=== PATIENT | female | born 1960 | race Caucasian/White ===

== ENCOUNTER 2025-03-02 12:38 | Inpatient (IN) | payer MEDICAID, MEDICARE ==
[~2025-03-02] VITALS: Ht 160 cm; Wt 80.8 kg
[~2025-03-02 12:38] MED LIST: LACT1CAP65 PO; MULT-1179 PO; PYRI-3 PO
[2025-03-02 13:07] LABS: BASOPHILS % (AUTO) 0.5 % (0-1); EOSINOPHILS # (AUTO) 0.1 X10'3 (0-0.9); EOSINOPHILS % (AUTO) 1.6 % (0-6); HEMATOCRIT 39.5 % (35.0-45.0); HEMOGLOBIN 13.1 g/dl (12.0-16.0); LYMPHOCYTES # (AUTO) 1.6 X10'3 (1.1-4.8); LYMPHOCYTES % (AUTO) 27.4 % (21-51); MEAN CORPUSCULAR HEMOGLOBIN 28.4 PG (27.0-31.0); MEAN CORPUSCULAR HGB CONC 33.3 g/dL (33.0-36.5); MEAN CORPUSCULAR VOLUME 85.2 FL (78-98); MEAN PLATELET VOLUME 7.1 FL (7.4-10.4); MONOCYTES # (AUTO) 0.5 X10'3 (0-0.9); MONOCYTES % (AUTO) 7.9 % (2-12); NEUTROPHILS # (AUTO) 3.7 X10'3 (1.8-7.7); NEUTROPHILS % (AUTO) 62.6 % (42-75); PLATELET COUNT 210 X10'3 (140-440); RED BLOOD COUNT 4.63 X10'6 (4.20-5.60); RED CELL DISTRIBUTION WIDTH 13.4 % (11.5-14.5); WHITE BLOOD COUNT 5.9 X10'3 (4.5-11.0)
[2025-03-02 13:17] LABS: ALBUMIN 4.1 G/DL (3.4-5.0); ANION GAP 9 (8-16); BLOOD UREA NITROGEN 30 MG/DL (7-18); BUN/CREATININE RATIO 29.1 (10.0-20.0); CALCIUM 9.4 MG/DL (8.5-10.1); CHLORIDE 100 MMOL/L (99-107); CREATININE 1.03 MG/DL (0.40-0.90); GLUCOSE 114 MG/DL (70-104); POTASSIUM 3.8 MMOL/L (3.5-5.1); SODIUM 136 MMOL/L (135-145); TOTAL CARBON DIOXIDE 27.3 MMOL/L (24-32); eCRCL 44 ML/MIN; eGFR 53 ML/MIN
--- NOTE | 2025-03-02 13:20 | ELECTROCARDIOGRAPH REPORT ---
[facility] Test Date: 2025-03-02 Test Time: 13:16:50 Pat Name: MESSI HUERTA Department: [facility] Patient ID: [facility]-[id number] Room: ORTHO [facility] Gender: F Convict Guard: : 1960 Requested By: DIDI LYNN Order Number: [id number] Reading MD: Dr. Lemuel Huerta Measurements Intervals [place] Rate: 71 P: 30 OH: 101 QRS: 45 QRSD: 96 T: 44 QT: 393 QTc: 428 Interpretive Statements Sinus rhythm Short OH interval Probable left atrial enlargement Electronically Signed On 03-05-2025 13:43:[address] Lemuel Huerta Please click the below link to view image of tracing.
[2025-03-02 13:22] LABS: APTT 26 SECONDS (22-32); PROTHROMBIN TIME 10.2 SECONDS (9.0-12.0)
[2025-03-02] MEDS ORDERED: iohexol 350MG/ML 100ml bottle IV ONE (13:28)
--- NOTE | 2025-03-02 13:31 | RADIOLOGY REPORT ---
CLINICAL INFORMATION: 65 years old, Female; Stroke Alert. TECHNIQUE: Axial imaging was obtained through the brain without contrast. Coronal and sagittal reform atted images were obtained, reviewed, and stored. Images were reviewed in brain and bone windows. Al l CT scans at this medical facility are performed using dose modulation techniques as appropriate to a performed exam including the following: Automated exposure control was utilized; adjustment of the MA and/or KV according to patient size; and use of iterative reconstruction technique. CTDIvol = 51.1 8 mGy DLP = 861.28 mGy-cm COMPARISON: None FINDINGS: There is no acute intracranial hemorrhage. No mass effect or midline shift. Scattered areas of hypoattenuation are seen in the periventricular and subcortical white matter, which are nonspecif ic but most likely sequelae of small vessel ischemic disease.The ventricles and sulci are within norm al limits in size for age. Basal cisterns are patent. The calvarium is unremarkable. Paranasal sinus es and mastoid air cells are clear. IMPRESSION: 1. No CT evidence of acute intracranial abnormality. 2. Nonacute findings as described above. Critical findings Critical Result: Stroke Alert Findings discussed with Dr. Shi, at 03/02/2025 03:27 PM CDT, and acknowledged receipt and understa nding of the findings. ..
--- NOTE | 2025-03-02 13:40 | RADIOLOGY REPORT ---
CHEST RADIOGRAPH Indication: Stroke Alert Technique: Single frontal view of the chest was obtained Comparison: FINDINGS: The cardiac silhouette is unremarkable. The lungs demonstrate no pulmonary airspace consolidation. Th e pulmonary vasculature is unremarkable. There is no pleural effusion.. There is no pneumothorax. IMPRESSION: 1. No pulmonary airspace consolidation.
--- NOTE | 2025-03-02 14:17 | RADIOLOGY REPORT ---
EXAM: CT CTA NECK/HEAD DATE OF SERVICE: 03/02/2025 01:36 PM ORDERING PHYSICIAN: DIDI LYNN REASON FOR EXAM: cva TECHNIQUE: CTA of the brain and neck was performed after the administration of contrast . Axial imag es of the head and neck are obtained. Coronal and sagittal images were then reformatted for review. M IP reformats were obtained and reviewed. COMPARISON: CT head from today FINDINGS: FINDINGS: The right common carotid artery demonstrates no high-grade stenosis. Right internal carotid artery demonstrates no high-grade stenosis. Right middle cerebral artery demonstrates no high-grade stenosis. The right anterior cerebral artery demonstrates no high-grade stenosis. There is a single A2 segment proximally. The left common carotid artery demonstrates no high-grade stenosis. Left internal carotid artery demonstrates no high-grade stenosis. The left middle cerebral artery demonstrates no high-grade stenosis. The left anterior cerebral artery demonstrates no high-grade stenosis. Single A2 segment proximally. The right vertebral artery demonstrates no high-grade stenosis. The left vertebral artery demonstrates no high-grade stenosis. Basilar artery demonstrates no high-grade stenosis. The bilateral posterior cerebral arteries demonstrate no high-grade stenosis. IMPRESSION: 1. No large vessel high-grade stenosis.
--- NOTE | 2025-03-02 15:51 | Physician Documentation ---
History of Present Illness ~ Chief Complaint: Stroke Alert Stated Complaint: DIZZINESS/CONFUSION Time Seen by MD: 13:17 Primary Medical Doctor: [facility] Mode of Arrival: POV, Ambulatory HPI 65-year-old female presenting for dizziness and confusion. She reports 3 days of word-finding difficulties worsened over the last 24 hours. She had similar episode 3 months ago which he did not seek treatment for. She had a separate episode of confusion last year when she was seen at [facility] and diagnosed with CVA she was placed on aspirin and Plavix. She has taken herself off the Plavix due to dizziness Medication Reconciliation Allergies: Coded Allergies: penicillin G (Verified Allergy, Unknown, A CHILD, UNKNOWN REACTION, 05/16/17) walnut (Verified Allergy, Unknown, SWELLS OF LIPS AND TONGUE, 05/16/17) wool (Verified Allergy, Unknown, 05/16/17) Uncoded Allergies: WALNUTS (Allergy, Unknown, 05/06/17) Scheduled Fluoxetine HCl (Prozac), 1 CAP PO DAILY, (Reported) Trazodone HCl (Trazodone HCl), 1 TAB PO HS, (Reported) Discontinued Medications Lactobacillus Acidophilus (Probiotic), 1 EACH PO DAILY, (Reported) Discontinued Reason: patient no longer taking Multivitamins,Therapeutic* (Theragran-M*), 1 EACH PO DAILY, (Reported) Discontinued Reason: patient no longer taking Pyridoxine Hcl (Vitamin B-6), 1 TAB PO DAILY, (Reported) Discontinued Reason: patient no longer taking Past Medical History Past Medical History: No Pertinent History Past Surgical History: orthopedic surgeries Alcohol Use: None Lives In: Home Review of Systems All Other Systems at this time: Reviewed and Negative Physical Exam Vital Signs: RN Vital Signs have been reviewed: Yes, Temperature: 98.9, Heart Rate: 75, Respiratory Rate: 18, BP: 123/62, Pulse Oximetry: 99, Weight: 80.850 Oxygen Flow Rate: 0 Progress Progress Note 5:00 p.m. consulted with Neurology they are recommending admission for MRI starting aspirin Plavix and stroke evaluation 5:40 p.m. Consulted hospitalist Service who agree with management plan and graciously accept for admission Results/Orders Reviewed/noted all lab results: Yes Results/Orders Orders - DIDI LYNN MD Monitor (03/02/25 12:55) 2 Large Bore Ivs (03/02/25 12:55) Chest,Single View (03/02/25 12:55) Accucheck (03/02/25 12:55) Ct Stroke Alert (03/02/25 12:55) Cta Neck/Head (03/02/25 ) [place] Prov.Neuro Consult (03/02/25 14:30) Page Hospitalist (03/02/25 16:30) Fill Out Med Reconciliation (03/02/25 16:30) Completed Orders - DIDI LYNN MD Cbc/Diff (03/02/25 12:55) Electrocardiogram (03/02/25 12:55) Chest,Single View (03/02/25 12:55) Ct Stroke Alert (03/02/25 12:55) BMP (03/02/25 12:55) PTT (03/02/25 12:55) Pt Inr (03/02/25 12:55) Cta Neck/Head (03/02/25 ) Iohexol 350mg/Ml 100ml (Omnipaque 350mg/ (03/02/25 13:28) Vital Signs 03/02/25 03/02/25 03/02/25 03/02/25 12:45 14:45 15:19 16:21 Temp 98.9 Pulse 76 74 75 68 Resp 18 18 18 18 B/P (MAP) 134/73 123/62 123/62 (82) 94/38 (56) Pulse Ox 96 96 99 94 O2 Flow Rate 0 03/02/25 17:25 Pulse 64 Resp 18 B/P (MAP) 126/64 (84) Pulse Ox 97 Laboratory Tests Test 03/02/25 12:58 03/02/25 12:59 Glucometer 126 H White Blood Count 5.9 Red Blood Count 4.63 Hemoglobin 13.1 Hematocrit 39.5 Mean Corpuscular Volume 85.2 Mean Corpuscular Hemoglobin 28.4 Mean Corpuscular Hemoglobin Concent 33.3 Red Cell Distribution Width 13.4 Platelet Count 210 Mean Platelet Volume 7.1 L Neutrophils (%) (Auto) 62.6 Lymphocytes (%) (Auto) 27.4 Monocytes (%) (Auto) 7.9 Eosinophils (%) (Auto) 1.6 Basophils (%) (Auto) 0.5 Neutrophils # (Auto) 3.7 Lymphocytes # (Auto) 1.6 Monocytes # (Auto) 0.5 Eosinophils # (Auto) 0.1 Basophils # (Auto) 0.0 CBC Comment Prothrombin Time 10.2 INR International Normalized Ratio 1.0 Activated Partial Thromboplast Time 26 Coagulation Comments Sodium Level 136 Potassium Level 3.8 Chloride Level 100 Carbon Dioxide Level 27.3 Anion Gap 9 Blood Urea Nitrogen 30 H Creatinine 1.03 H Estimated GFR/1.73 m2 53 BUN/Creatinine Ratio 29.1 H Glucose Level 114 H Calcium Level 9.4 Albumin 4.1 Chemistry Comments EKG/XRAY/CT/US/VASC/MRI EKG : Additional Comment EKG independently interpreted by myself time 1:16 p.m. indication symptomatic patient normal sinus rhythm rate 71 normal axis normal intervals no ST or T-wave abnormalities CT : Impression CT head independently interpreted by myself shows no intracranial hemorrhage Medical Decision Making Additional info obtained from: old records Findings Discharge summary Differential Dx:Considerations: Include: CVA, Electrolyte imbalance, Encephalopathy Departure Disposition: ADMITTED INPATIENT Admitted to Inpatient Unit: to hospitalist Impression: Primary Impression: CVA (cerebral vascular accident) Qualified Codes: I63.9 - Cerebral infarction, unspecified Additional Impression Text Considered tPA for cerebrovascular accident however patient improving symptoms and medically contraindicated due to out of tPA window Referrals: NO PRIMARY CARE PROVIDER (PCP) Critical Care Note Total Time (mins): 30 Critical Care Note The very real possibility of a deterioration of this patient's condition required the highest level of my preparedness for sudden, emergent intervention. I provided critical care services, which included medication orders, frequent reevaluations of the patient's condition and response to treatment, ordering and reviewing test results, and discussing the case with various consultants. Excludes time spent performing separately billable procedures. The critical care time associated with the care of the patient was 30 minutes for the treatment of cerebrovascular accident requiring consideration of tPA Signature Scribe Signature: na Attestation: DIDI Garcia MD March 02, 2025 15:51
[2025-03-02] MEDS ORDERED: FLUO40CA10 PO (16:43)
[2025-03-02] MEDS ORDERED: TRAZ-251 PO (16:43)
--- NOTE | 2025-03-02 16:52 | [facility] CONSULT REPORT ---
[facility] Procedure Note [facility] Procedure Note Consult [facility] Note # Demographics Consult Type: Acute Stroke Level 2 (4.5-24 hrs) Patient Location: Emergency Room First Name: MESSI Last Name: BRADLEY Date of : 1960 Age: 65 Gender: Female Facility: [facility] Time of Initial Page (): 03/02/2025 16:24 Time of Return Call (): 03/02/2025 16:24 # HPI Chief Complaint: - speech changes - confusion History: 65 yo F p/w confusion, trouble texting and word finding difficulties for 3 days. Symptoms resolved now. Hx of stroke in 2023, no residual symptoms. Last Known Normal: 3 days ago # Scores Time of exam and NIHSS (): 03/02/2025 16:28 Level of Consciousness 1a: [0] = Alert; keenly responsive LOC Questions 1b: [0] = Answers both questions correctly LOC Commands 1c: [0] = Performs both tasks correctly Best Gaze 2: [0] = Normal Visual 3: [0] = No visual loss Facial Palsy 4: [0] = Normal symmetrical movements Motor Arm Left 5a: [0] = No drift Motor Arm Right 5b: [0] = No drift Motor Leg Left 6a: [0] = No drift Motor Leg Right 6b: [0] = No drift Limb Ataxia 7: [0] = Absent Sensory 8: [0] = Normal Best Language 9: [0] = No aphasia Dysarthria 10: [0] = Normal Extinction and Inattention 11: [0] = No abnormality NIHSS Total: 0 ABCD2 Score for TIA: [1] = Age >/= 60 years: Yes [0] = BP >/= 140/90: No [1] = Clinical features of the TIA: speech disturbances without weakness [2] = Duration of symptoms: >/= 60 minutes [0] = History of diabetes: No ABCD2 Total: 4 # ROS Additional: - complete review of systems otherwise negative # PMH-FH-SH Past Medical History: - stroke - hyperlipidemia Medications: - aspirin # Data Head CT: - no bleed CTA Head: no large vessel occlusion CTA Neck: patent vessels # Assessment Impression: - Transient Ischemic Attack # Plan Thrombolytic/Intervention: NOT IV Thrombolysis or IA Intervention candidate Thrombolytic Exclusion: > 4.5 hours Intraarterial Exclusion: - no large vessel occlusion (LVO) Labs: - hemoglobin A1c - lipid panel - troponin Imaging: (urgency: routine): - MRI Brain without contrast Diagnostic Test: - echo without bubble study Therapy/Evaluation: - NPO until swallow evaluation - PT/OT evaluation - speech/swallow consultation Medication: - Plavix 300 mg PO x1 now, then 75 mg daily x 21 days + asa 81mg x 21 days, followed by monotherapy thereafter - start statin with goal of LDL < 70 Other: - If patient has any neurological deterioration please call me back immediately - telemetry monitoring - LDL < 70 - neurology referral as outpatient - I have discussed my recommendations with the referring provider # Logistics Attestation of consult completion: The patient is located at: [facility]. Facility staff participated in the visit. I performed this telemedicine visit from my offsite office utilizing interactive 2 way audio and visual telecommunication technology. Total time spent in telemedicine encounter: I spent 23 minutes reviewing clinical data and/or imaging, obtaining history, examining the patient, communicating with the onsite care team, and in preparation of this report. # Demographics First Name: MESSI Last Name: BRADLEY Facility: [facility] Electronically signed at 03/02/2025 16:51 ([place] Time) by Itz Taylor MD Neuro Consult Order placed for: Yes ITZ TAYLOR MD March 02, 2025 16:52
[2025-03-02] MEDS: clopidogrel 300mg tablet PO ONE (18:10)
[2025-03-02] MEDS: aspirin 81mg tab.chew PO ONE ×2 (18:10→19:29)
[2025-03-02] MEDS ORDERED: acetaminophen 325mg tablet PO PRN ×2 (19:00)
[2025-03-02] MEDS ORDERED: magnesium sulf-water 2g/50mL 50 ML IV PRN (19:00)
[2025-03-02] MEDS ORDERED: potassium Cl 20 mEq SR tablet PO PRN ×2 (19:00)
[2025-03-02] MEDS ORDERED: ondansetron/PF 4mg/2ml inj IV PRN (19:00)
[2025-03-02] MEDS ORDERED: HYDROcodone/acetaminophen 5mg/325mg tablet PO PRN (19:00)
[2025-03-02] MEDS ORDERED: bisacodyl 10mg suppository rectal RC PRN (19:00)
[2025-03-02] MEDS ORDERED: mag hydrox/Alum hydrox/simeth 30ml oral suspension PO PRN (19:00)
[2025-03-02] MEDS ORDERED: HYDROcodone/acetaminophen 10/325mg tab PO PRN (19:00)
[2025-03-02] MEDS ORDERED: magnesium sulf-water 4G/100mL 100 ML IV PRN (19:00)
[2025-03-02] MEDS ORDERED: potassium Cl 40MEQ/1/2NS 520ml 520 ML IV PRN (19:00)
[2025-03-02] MEDS: PERFLUTREN PROTEIN-A MICROSPHR (Optison) 0.22 MG/ML 3ML VIAL IV ONE (19:22)
[2025-03-02] MEDS: enoxaparin 40mg/0.4ml syringe SQ SCH (19:30)
[2025-03-02] MEDS: normal saline 1000ml 1,000 ML IV SCH (19:30)
--- NOTE | 2025-03-02 19:32 | HISTORY AND PHYSICAL ---
History & Physical Providers to CC ~ History of Present Illness Reason for Admit\Complaint: CVA\expressive aphasia History of Present Illness This is a 65-year-old female who had a CVA in July presents to the ED with a three day history of expressive aphasia and difficulty with completing day-to-day tasks. Patient states she is unable to pay bills for the past couple of days. The patient has started to getting really angry she said it was making her upset and to the point today that she came to the ED. patient's head CT scan was negative for any acute findings and the CTA of the head and neck was negative for any significant for any stenosis. The patient was evaluated by Dr. Hardin tele neurologist who recommended 300 mg of Plavix now as well as atorvastatin and then 75 mg of Plavix daily along with 81 mg aspirin. The patient currently is taking aspirin daily and refuses to take Plavix or atorvastatin she informs me that she was discharged with these medications and shortly after starting these medications that has she felt weird and they made her upset she discuss this with the neurologist and she had longer takes either medication. The patient does take aspirin at home and red rice yeast supplement that is commonly taken as a substitute for statin. I spoke with Dr. Hardin about this and it was agreed upon that in a appropriate alternative would be to take 325 mg of aspirin daily and to continue red rice yeast- if the patient is LDL is 70 or above then to add Zetia. An MRI of the head is ordered as well as echocardiogram with a bubble study and fasting lipid panel A1c and troponin. Speech therapy and physical therapy is ordered Allergies: Coded Allergies: penicillin G (Verified Allergy, Unknown, A CHILD, UNKNOWN REACTION, 05/16/17) walnut (Verified Allergy, Unknown, SWELLS OF LIPS AND TONGUE, 05/16/17) wool (Verified Allergy, Unknown, 05/16/17) Atorvastatin (Verified Adverse Reaction, Severe, 03/02/25) clopidogrel (Verified Adverse Reaction, Unknown, 03/02/25) Uncoded Allergies: WALNUTS (Allergy, Unknown, 05/06/17) Home Medications Home Medications Active Reported Trazodone HCl 50 Mg Tablet 1 Tab PO HS 30 Days Prozac (Fluoxetine HCl) 40 Mg Capsule 1 Cap PO DAILY 30 Days Past Medical History Past Medical History CVA, depression and anxiety, degenerative disc disease of the cervical spine Past Surgical History Surgical History Comment Right rotator cuff repair, bilateral carpal tunnel surgery Family History Family History: FH: Alzheimers disease FATHER MOTHER FH: hyperlipidemia Maternal grandmother Past Social History Social History Comment Patient denes history of smoking/ drinking alcohol nor any illicit drug use DNR Code Status ROS ROS Except for positives in the HPI the rest of the 14 point review systems is negative Exam Vitals: Vital Signs Date Time Temp Pulse Resp B/P (MAP) Pulse Ox O2 Delivery O2 Flow Rate FiO2 03/02/25 18:23 78 12 137/67 (90) 99 03/02/25 12:45 98.9 0 General: Gen. No acute distress alert and oriented word-finding is present Lungs clear to ascultation bilaterally, no wheezes rales or rhonchi appreciated Heart normal sinus rhythm no murmurs rubs or clicks noted Abdomen soft nontender bowel sounds are normoactive Lower extremities no clubbing cyanosis, nor edema appreciated bilaterally Diagnostic Data Last Recorded Lab Results: 03/02/25 1259 03/02/25 1259 Diagnostic Data: Laboratory Tests Test 03/02/25 12:59 Prothrombin Time 10.2 SECONDS (9.0-12.0) INR International Normalized Ratio 1.0 INR Activated Partial Thromboplast Time 26 SECONDS (22-32) Coagulation Comments Advance Care Planning Advanced Care plannin - 30 Minutes Problems: (1) CVA (cerebral vascular accident) Status: Acute Additional Plan # expressive aphasia-likely secondary to CVA workup is in progress The patient was evaluated by Dr. Hardin tele neurologist who recommended 300 mg of Plavix now as well as atorvastatin and then 75 mg of Plavix daily along with 81 mg aspirin. The patient currently is taking aspirin daily and refuses to take Plavix or atorvastatin she informs me that she was discharged with these medications and shortly after starting these medications that has she felt weird and they made her upset she discuss this with the neurologist and she had longer takes either medication. The patient does take aspirin at home and red rice yeast supplement that is commonly taken as a substitute for statin. I spoke with Dr. Hardin about this and it was agreed upon that in a appropriate alternative would be to take 325 mg of aspirin daily and to continue red rice yeast- if the patient is LDL is 70 or above then to add Zetia. MRI of the head is ordered Echocardiogram Fasting lipid panel Troponin # depression/anxiety Continue fluoxetine and trazodone # renal insufficiency evaluate for KACEY Daily metabolic panels order # DVT prophylaxis SCDs and SQ Lovenox I spent a total of 17 minutes on reviewing various resuscitative measures/ ACP with the patient at the time of admission. The patient has decided on a full code status Date of Service: March 02, 2025 Billing Provider: BING DE LA PAZ DO Common Visit Codes: [id number] INP/OBS CARE (HIGH) Secondary Visit Codes: [id number] CARE PLAN 30 MINUTES Problem Qualifiers (1) CVA (cerebral vascular accident): CVA mechanism: unspecified Qualified Codes: I63.9 - Cerebral infarction, unspecified BING DE LA PAZ DO March 02, 2025 19:31
[2025-03-02] MEDS: docusate sod 100mg capsule PO SCH (19:38)
[2025-03-02] MEDS: K and/or MAG REPLACEMENT MC SCH (20:00)
[2025-03-02 21:30] VITALS: BP 132/64; PULSE 69; RESP 15; TEMP 97.9; O2SAT 98
[2025-03-02 22:00] VITALS: RESP 15; O2SAT 98
[2025-03-02] MEDS: traZODone 50mg tablet PO SCH (22:26)
[2025-03-03 02:00] VITALS: BP 123/58; PULSE 73; RESP 14; TEMP 98.3; O2SAT 98
[2025-03-03 06:00] VITALS: BP 108/53; PULSE 72; RESP 13; TEMP 97.9; O2SAT 97
[2025-03-03 07:21] LABS: BASOPHILS % (AUTO) 0.4 % (0-1); EOSINOPHILS # (AUTO) 0.1 X10'3 (0-0.9); EOSINOPHILS % (AUTO) 2.4 % (0-6); HEMOGLOBIN 12.6 g/dl (12.0-16.0); LYMPHOCYTES # (AUTO) 1.9 X10'3 (1.1-4.8); LYMPHOCYTES % (AUTO) 36.4 % (21-51); MEAN CORPUSCULAR HEMOGLOBIN 28.2 PG (27.0-31.0); MEAN CORPUSCULAR HGB CONC 33.1 g/dL (33.0-36.5); MEAN CORPUSCULAR VOLUME 85.1 FL (78-98); MEAN PLATELET VOLUME 7.1 FL (7.4-10.4); MONOCYTES # (AUTO) 0.5 X10'3 (0-0.9); MONOCYTES % (AUTO) 8.5 % (2-12); NEUTROPHILS # (AUTO) 2.8 X10'3 (1.8-7.7); NEUTROPHILS % (AUTO) 52.3 % (42-75); PLATELET COUNT 173 X10'3 (140-440); RED BLOOD COUNT 4.47 X10'6 (4.20-5.60); RED CELL DISTRIBUTION WIDTH 13.4 % (11.5-14.5); WHITE BLOOD COUNT 5.3 X10'3 (4.5-11.0)
[2025-03-03 08:01] LABS: ALANINE AMINOTRANSFERASE 23 U/L (12-78); ALBUMIN 3.5 G/DL (3.4-5.0); ALKALINE PHOSPHATASE 62 IU/L (46-116); ANION GAP 11 (8-16); ASPARTATE AMINO TRANSFERASE 20 U/L (10-37); BILIRUBIN,TOTAL 0.3 MG/DL (0.1-1.0); BLOOD UREA NITROGEN 20 MG/DL (7-18); CALCIUM 8.7 MG/DL (8.5-10.1); CHLORIDE 107 MMOL/L (99-107); CHOLESTEROL 215 MG/DL (0-200); CREATININE 0.91 MG/DL (0.40-0.90); GLUCOSE 103 MG/DL (70-104); HDL CHOLESTEROL 43 MG/DL (35-60); LDL CHOLESTEROL 131 MG/DL (50-100); POTASSIUM 3.7 MMOL/L (3.5-5.1); SODIUM 142 MMOL/L (135-145); TOTAL CARBON DIOXIDE 23.8 MMOL/L (24-32); TRIGLYCERIDES 290 MG/DL (20-135); eCRCL 50 ML/MIN; eGFR 62 ML/MIN
[2025-03-03 08:25] LABS: HEMOGLOBIN A1C 6.2 % (4.5-6.2)
[2025-03-03] MEDS: FLUoxetine 20mg capsule PO SCH (09:51)
[2025-03-03] MEDS: aspirin 325mg tablet PO SCH (09:51)
[2025-03-03] MEDS: ezetimibe 10mg tablet PO ONE (09:52)
[2025-03-03 10:00] VITALS: BP 130/61; PULSE 69; RESP 15; TEMP 97.3; O2SAT 98
--- NOTE | 2025-03-03 10:12 | RADIOLOGY REPORT ---
[facility]: MR MRI HEAD INDICATION: CVA vs TIA COMPARISON: CT scan of the head performed on 03/02/2025 TECHNIQUE: Multiplanar, multisequence magnetic resonance imaging of the brain was performed without the use of i ntravenous contrast. FINDINGS: No evidence of acute infarct. No intracranial hemorrhage. No mass effect. Old infarcts in the medial right thalamus. The ventricles and sulci are normal in size for age. Clear basal cisterns. Flow voids in the major intracranial vessels are maintained. No abnormality of the orbits. Paranasal sinuses and mastoid air cells are clear. No abnormality of the visualized osseous structures and extracranial soft tissues. IMPRESSION: 1. No acute infarct, intracranial hemorrhage, mass effect, or hydrocephalus.
[2025-03-03 18:00] VITALS: BP 117/62; PULSE 77; RESP 16; TEMP 97.7; O2SAT 97
[2025-03-03 22:00] VITALS: BP 121/53; PULSE 67; RESP 16; TEMP 97.5; O2SAT 97
--- NOTE | 2025-03-03 22:07 | PROGRESS NOTE ---
Daily Progress Note Providers to CC ~ Antibiotic Timeout Antibiotic Ordered?: No Subjective The patient has expressive aphasia is improving- I informed the patient of my discussion with the neurologist and the neurologist recommendations in the patient has started Zetia since her LDL was 131 Objective Vital Signs Date Time Temp Pulse Resp B/P (MAP) Pulse Ox O2 Delivery O2 Flow Rate FiO2 03/03/25 18:30 74 03/03/25 18:00 97.7 16 117/62 (80) 97 Room Air 03/02/25 21:15 0 Result Diagram: 03/03/25 0647 03/03/25 0647 Gen. No acute distress alert and oriented 4 Lungs clear to ascultation bilaterally, no wheezes rales or rhonchi appreciated Heart normal sinus rhythm no murmurs rubs or clicks noted Abdomen soft nontender bowel sounds are normoactive Lower extremities no clubbing cyanosis, nor edema appreciated bilaterally Coagulation Studies Laboratory Tests Test 03/02/25 12:59 Prothrombin Time 10.2 SECONDS (9.0-12.0) INR International Normalized Ratio 1.0 INR Activated Partial Thromboplast Time 26 SECONDS (22-32) Coagulation Comments Problem\Assessment\Plan Problems/Diagnosis: (1) CVA (cerebral vascular accident) # expressive aphasia-likely secondary to CVA workup is in progress The patient was evaluated by Dr. Hardin tele neurologist who recommended 300 mg of Plavix now as well as atorvastatin and then 75 mg of Plavix daily along with 81 mg aspirin. The patient currently is taking aspirin daily and refuses to take Plavix or atorvastatin she informs me that she was discharged with these medications and shortly after starting these medications that has she felt weird and they made her upset she discuss this with the neurologist and she had longer takes either medication. The patient does take aspirin at home and red rice yeast supplement that is commonly taken as a substitute for statin. I spoke with Dr. Hardin about this and it was agreed upon that in a appropriate alternative would be to take 325 mg of aspirin daily and to continue red rice yeast- if the patient is LDL is 70 or above then to add Zetia. MRI of the head is ordered Echocardiogram Fasting lipid panel Troponin 03/03 the patient is echocardiogram demonstrated an LVEF of 55-60% a negative bubble study The patient is MRI of her head was negative for acute CVA The patient's LDL is 131 thus Zetia was started today # depression/anxiety Continue fluoxetine and trazodone # renal insufficiency evaluate for KACEY Daily metabolic panels order # DVT prophylaxis SCDs and SQ Lovenox Disposition: Physical therapy eval pending- anticipate discharge in the a.m. Date of Service: March 03, 2025 Billing Provider: BING DE LA PAZ DO Common Visit Codes: [id number] INP/OBS CARE(HIGH) Problem Qualifiers (1) CVA (cerebral vascular accident): Qualified Codes: I63.9 - Cerebral infarction, unspecified BING DE LA PAZ DO March 03, 2025 22:07
--- NOTE | 2025-03-04 00:14 | CARDIOLOGY REPORT ---
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 133.0 cm/s AoV VTI 28.5 cm AO Peak GR. 7.1 mmHg AO Mean GR. 4 mmHg LVOT VTI 23.46 cm LVOT Peak Richard. 91.1 cm/s REI(VTI)/BSA 2.69 cm2/m2 REI (VTI) 2.69 cm2 Mitral Valve MV E Velocity 77.3 cm/s MV Peak Gr. 3 mmHg MV DECEL TIME 220 ms MV A Velocity 98.4 cm/s MV Mean Gr. 1 mmHg MV PHT 56 ms E/A Ratio 0.8 MVA (PHT) 3.93 cm2 MV VMax90.9 cm/sMV VMean51.3 cm/s MVA VTI3.17 cm2MV VTI24.2 cm TDI Lateral E' P. V11.65 cm/s Medial E' P. V 10.23 cm/s E/Lateral E' 6.6 E/Medial E' 7.6 Pulmonary Valve RVOT VTI 22.6 cm Tricuspid Valve TR P. Velocity 228 cm/s RAP ESTIMATE 10 mmHg TR Peak Gr. 21 mmHg RVSP 31 mmHg Pulmonary Vein S1 Velocity 63.2 cm/s D2 Velocity 45.7 cm/s PVa Ekbhgned60.5 cm/s PVa [id number] msec LEFT VENTRICLE Normal LV size and wall thickness. Overall systolic function is normal. Overall LVEF is 55-60%. RIGHT VENTRICLE RV is normal size and function. Estimated PA systolic pressure is 31 mmHg. ATRIA The left atrium size is normal. Saline study was performed with 2 IV injections of 10 ccs of agitated normal saline at rest, with cough, and with valsalva. Grossly negative saline study for right to lef t flow. AORTIC VALVE Trileaflet AV appears sclerotic without stenosis or insufficiency. MITRAL VALVE Mild MV annular calcification without stenosis. Trace regurgitation. TRICUSPID VALVE TV appears structurally normal with trace regurgitation. PULMONIC VALVE Normal PV without stenosis, physiologic insufficiency. GREAT VESSELS The aortic root is normal in size. IVC is not well visualized. PERICARDIUM Normal pericardium. No pericardial effusion seen. Other Information Study Quality: Adequate Conclusion Normal LV size and wall thickness. Overall systolic function is normal. Overall LVEF is 55-60%. RV is normal size and function. Estimated PA systolic pressure is 31 mmHg. The left atrium size is normal. Saline study was performed with 2 IV injections of 10 ccs of agitate d normal saline at rest, with cough, and with valsalva. Grossly negative saline study for right to l eft flow. Trileaflet AV appears sclerotic without stenosis or insufficiency. Mild MV annular calcification without stenosis. Trace regurgitation. TV appears structurally normal with trace regurgitation. Normal pericardium. No pericardial effusion seen.
[2025-03-04 02:00] VITALS: BP 115/54; PULSE 67; RESP 16; TEMP 97.9; O2SAT 97
[2025-03-04 06:00] VITALS: BP 120/52; PULSE 61; RESP 16; TEMP 98.1; O2SAT 95
[2025-03-04 06:19] LABS: BASOPHILS % (AUTO) 0.6 % (0-1); EOSINOPHILS # (AUTO) 0.1 X10'3 (0-0.9); EOSINOPHILS % (AUTO) 2.5 % (0-6); HEMATOCRIT 36.9 % (35.0-45.0); HEMOGLOBIN 12.3 g/dl (12.0-16.0); LYMPHOCYTES # (AUTO) 2.2 X10'3 (1.1-4.8); LYMPHOCYTES % (AUTO) 42.4 % (21-51); MEAN CORPUSCULAR HEMOGLOBIN 28.2 PG (27.0-31.0); MEAN CORPUSCULAR HGB CONC 33.4 g/dL (33.0-36.5); MEAN CORPUSCULAR VOLUME 84.6 FL (78-98); MEAN PLATELET VOLUME 7.2 FL (7.4-10.4); MONOCYTES # (AUTO) 0.4 X10'3 (0-0.9); MONOCYTES % (AUTO) 8.1 % (2-12); NEUTROPHILS # (AUTO) 2.4 X10'3 (1.8-7.7); NEUTROPHILS % (AUTO) 46.4 % (42-75); PLATELET COUNT 180 X10'3 (140-440); RED BLOOD COUNT 4.36 X10'6 (4.20-5.60); RED CELL DISTRIBUTION WIDTH 13.5 % (11.5-14.5); WHITE BLOOD COUNT 5.2 X10'3 (4.5-11.0)
[2025-03-04 06:35] LABS: ALANINE AMINOTRANSFERASE 26 U/L (12-78); ALBUMIN 3.3 G/DL (3.4-5.0); ALBUMIN/GLOBULIN RATIO 0.9 (1.1-1.5); ALKALINE PHOSPHATASE 58 IU/L (46-116); ANION GAP 10 (8-16); ASPARTATE AMINO TRANSFERASE 19 U/L (10-37); BILIRUBIN,TOTAL 0.3 MG/DL (0.1-1.0); BLOOD UREA NITROGEN 21 MG/DL (7-18); BUN/CREATININE RATIO 21.9 (10.0-20.0); CALCIUM 8.4 MG/DL (8.5-10.1); CHLORIDE 109 MMOL/L (99-107); CREATININE 0.96 MG/DL (0.40-0.90); GLUCOSE 91 MG/DL (70-104); MAGNESIUM 1.9 MG/DL (1.5-2.4); SODIUM 144 MMOL/L (135-145); TOTAL CARBON DIOXIDE 25.4 MMOL/L (24-32); TOTAL PROTEIN 6.8 G/DL (6.4-8.2); eCRCL 47 ML/MIN; eGFR 58 ML/MIN
[2025-03-04] MEDS: ezetimibe 10mg tablet PO SCH (07:45)
[2025-03-04 10:00] VITALS: BP 136/53; PULSE 83; RESP 16; TEMP 98.5; O2SAT 97
[2025-03-04] MEDS ORDERED: EZET10TA48 PO (10:38)
[2025-03-04] MEDS ORDERED: ASPI-1 PO (10:38)
--- NOTE | 2025-03-04 19:55 | DISCHARGE SUMMARY ---
Discharge Summary Providers to CC ~ Discharge Summary Admission Diagnosis: CVA/TIA Hospital Course DATE OF ADMISSION: 03/02/2025 DATE OF DISCHARGE: 03/04/2025 Discharge Diagnosis\Comment: TIA CVA IS RULED OUT, depression/anxiety, kidney disease acute kidney injury ruled out, Operations\Procedures: None Consultants: Dr. Hardin Telemedicine neurology Complications: None Condition on DC: Stable New Medications: Aspirin (Aspirin) 325 Mg Tablet 1 TAB PO DAILY@0830, #30 TAB Ezetimibe (Ezetimibe) 10 Mg Tablet 10 MG PO DAILY, #30 TAB Continued Medications: Fluoxetine HCl (Prozac) 40 Mg Capsule 1 CAP PO DAILY for 30 Days, #30 CAP 0 Refills Trazodone HCl (Trazodone HCl) 50 Mg Tablet 1 TAB PO HS for 30 Days, #30 TAB 0 Refills Discharge Summary: I admitted Ms. Harrison with the following HPI: This is a 65-year-old female who had a CVA in July presents to the ED with a three day history of expressive aphasia and difficulty with completing day-to-day tasks. Patient states she is unable to pay bills for the past couple of days. The patient has started to getting really angry she said it was making her upset and to the point today that she came to the ED. patient's head CT scan was negative for any acute findings and the CTA of the head and neck was negative for any significant for any stenosis. The patient was evaluated by Dr. Hardin tele neurologist who r ecommended 300 mg of Plavix now as well as atorvastatin and then 75 mg of Plavix daily along with 81 mg aspirin. The patient currently is taking aspirin daily and refuses to take Plavix or atorvastatin she informs me that she was discharged with these medications and shortly after starting these medications that has she felt weird and they made her upset she discuss this with the neurologist and she had longer takes either medication. The patient does take aspirin at home and red rice yeast supplement that is commonly taken as a substitute for statin. I spoke with Dr. Hardin about this and it was agreed upon that in a appropriate alternative would be to take 325 mg of aspirin daily and to continue red rice yeast- if the patient is LDL is 70 or above then to add Zetia. An MRI of the head is ordered as well as echocardiogram with a bubble study and fasting lipid panel A1c and troponin. Speech therapy and physical therapy is ordered. The patient is MRI was negative for CVA The patient is echocardiogram demonstrated an LVEF of 55-60% an RVSP of 31 mm Hg and a negative bubble study The patient has a LDL of 131 thus I added Zetia to her red rice yeast and the patient tolerated this medication without any side effects The patient is to continue her fluoxetine for depression as well as trazodone Gen. No acute distress alert and oriented 4 Lungs clear to ascultation bilaterally, no wheezes rales or rhonchi appreciated Heart normal sinus rhythm no murmurs rubs or clicks noted Abdomen soft nontender bowel sounds are normoactive Lower extremities no clubbing cyanosis, nor edema appreciated bilaterally On the day of discharge the patient's expressive aphasia had resolved. The patient felt ready to be discharged and was medically cleared to be discharged on 03/04/2025 The patient was seen and evaluated on day of discharge. Time spent on discharge 35 minutes *Problems/Diagnosis: (1) CVA (cerebral vascular accident) Status: Acute Total Time Spent on D/C: > 30 Minutes Date of Service: March 04, 2025 Billing Provider: BING DE LA PAZ DO Common Visit Codes: 05880-MOR/OBS DISCH DAY >30min Problem Qualifiers (1) CVA (cerebral vascular accident): Qualified Codes: I63.9 - Cerebral infarction, unspecified BING DE LA PAZ DO March 04, 2025 19:55
== END 2025-03-04 11:54 | disposition home or self-care (01) | DRG 69 ==
LOC: ER 12:38 → ED HOLD 17:55 → UNDOADMIN 17:55 → ED HOLD 19:03 → ORTHO 4S 21:20
PROVIDERS: ADMIT Family Medicine; ATTEND Family Medicine
PROC: B3251ZZ Computerized Tomography (CT Scan) of Bilateral Common Carotid Arteries using Low Osmolar Contrast (ICD-10-PCS; principal; 2025-03-02)
PROC: B32G1ZZ Computerized Tomography (CT Scan) of Bilateral Vertebral Arteries using Low Osmolar Contrast (ICD-10-PCS; 2025-03-02)
PROC: B32R1ZZ Computerized Tomography (CT Scan) of Intracranial Arteries using Low Osmolar Contrast (ICD-10-PCS; 2025-03-02)
PROC: B3281ZZ Computerized Tomography (CT Scan) of Bilateral Internal Carotid Arteries using Low Osmolar Contrast (ICD-10-PCS; 2025-03-02)
DX: G45.9 Transient cerebral ischemic attack, unspecified (principal); N28.9 Disorder of kidney and ureter, unspecified; F32.A Depression, unspecified; F41.9 Anxiety disorder, unspecified; Z87.891 Personal history of nicotine dependence; Z86.73 Personal history of transient ischemic attack (TIA), and cerebral infarction without residual deficits; Z91.018 Allergy to other foods; Z88.0 Allergy status to penicillin; Z91.09 Other allergy status, other than to drugs and biological substances; Z79.899 Other long term (current) drug therapy; Z83.438 Family history of other disorder of lipoprotein metabolism and other lipidemia
CPT/HCPCS: 36415; 70450; 70496; 70498; 70551; 71045; 80048; 80053; 80061; 82948; 83036; 83735; 84484; 85025; 85610; 85730; 87081; 92508; 92616; 93005; 93306; 96360; 97116; 97161; 97530; 99291; G0378; J1650; J7030; Q9967